=== PATIENT | male | born 1975 | race Caucasian/White ===

== ENCOUNTER 2018-10-12 23:44 | Emergency (ER) | payer SELFPAY ==
[2018-10-12 23:53] VITALS: BP 125/80
[2018-10-13] MEDS ORDERED: MORPHINE IV ONE (00:32)
[2018-10-13] MEDS ORDERED: ZOFRAN IV ONE (00:32)
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
== END 2018-10-13 02:04 | disposition home or self-care (01) ==
LOC: ED 23:44
DX: S09.90XA Unspecified injury of head, initial encounter (principal); R51 Headache; Y04.2XXA Assault by strike against or bumped into by another person, initial encounter; Y93.89 Activity, other specified; Y99.8 Other external cause status; Y92.512 Supermarket, store or market as the place of occurrence of the external cause
CPT/HCPCS: 70450; 72125; 96374; 96375; 99284; J2270; J2405